=== PATIENT | female | born 1940 | race Caucasian/White ===

== ENCOUNTER 2023-06-21 12:14 | Emergency (ER) | payer MEDICARE, BC ==
[~2023-06-21] VITALS: Ht 167.6 cm; Wt 75.0 kg
[2023-06-21 12:49] VITALS: TEMP 98.7
[2023-06-21 13:22] LABS: BASOPHILS % (AUTO) 0.6 % (0-1); EOSINOPHILS % (AUTO) 0.2 % (0-6); HEMATOCRIT 34.8 % (35.0-45.0); HEMOGLOBIN 11.7 g/dl (12.0-16.0); LYMPHOCYTES # (AUTO) 1.9 X10'3 (1.1-4.8); LYMPHOCYTES % (AUTO) 37.2 % (21-51); MEAN CORPUSCULAR HEMOGLOBIN 29.1 PG (27.0-31.0); MEAN CORPUSCULAR HGB CONC 33.6 g/dL (33.0-36.5); MEAN CORPUSCULAR VOLUME 86.6 FL (78-98); MEAN PLATELET VOLUME 7.1 FL (7.4-10.4); MONOCYTES # (AUTO) 0.7 X10'3 (0-0.9); MONOCYTES % (AUTO) 14.2 % (2-12); NEUTROPHILS # (AUTO) 2.4 X10'3 (1.8-7.7); NEUTROPHILS % (AUTO) 47.8 % (42-75); PLATELET COUNT 192 X10'3 (140-440); RED BLOOD COUNT 4.02 X10'6 (4.20-5.60)
[2023-06-21 13:31] LABS: ALANINE AMINOTRANSFERASE 27 U/L (12-78); ALBUMIN 3.2 G/DL (3.4-5.0); ALKALINE PHOSPHATASE 48 IU/L (46-116); ANION GAP 10 (8-16); ASPARTATE AMINO TRANSFERASE 36 U/L (10-37); BILIRUBIN,TOTAL 0.3 MG/DL (0.1-1.0); BLOOD UREA NITROGEN 39 MG/DL (7-18); BUN/CREATININE RATIO 21.8 (10.0-20.0); CALCIUM 8.3 MG/DL (8.5-10.1); CHLORIDE 101 MMOL/L (99-107); CREATININE 1.79 MG/DL (0.40-0.90); GLUCOSE 114 MG/DL (70-104); POTASSIUM 4.7 MMOL/L (3.5-5.1); SODIUM 134 MMOL/L (135-145); TOTAL CARBON DIOXIDE 22.6 MMOL/L (24-32); TOTAL PROTEIN 6.4 G/DL (6.4-8.2); eCRCL 22 ML/MIN; eGFR 27 ML/MIN
[2023-06-21 13:39] LABS: PRO BRAIN NATRIURETIC PEPTIDE 39 PG/ML (0-450)
[2023-06-21] MEDS ORDERED: ondansetron 4mg rapidly disintigrating tab PO ONE ×2 (15:05→17:20)
[2023-06-21] MEDS ORDERED: LISI20TA28 PO (15:16)
[2023-06-21] MEDS ORDERED: LOVA40TA2 PO (15:16)
[2023-06-21] MEDS ORDERED: AMLO2.5T5 PO (15:17)
[2023-06-21] MEDS ORDERED: [UNRECOGNIZED DRUG - OTHER] PO (15:18)
[2023-06-21] MEDS ORDERED: CRAN400C PO (15:19)
[2023-06-21] MEDS ORDERED: UBID100C16 PO (15:20)
[2023-06-21] MEDS ORDERED: CHRO1000 PO (15:22)
[2023-06-21] MEDS ORDERED: [UNRECOGNIZED DRUG - OTHER] PO (15:23)
[2023-06-21] MEDS ORDERED: ASPI-611 PO (15:24)
[2023-06-21] MEDS ORDERED: CIDE600C PO (15:24)
[2023-06-21] MEDS ORDERED: [UNRECOGNIZED DRUG - OTHER] PO (15:25)
[2023-06-21] MEDS ORDERED: CHOL20004 PO (15:26)
[2023-06-21] MEDS ORDERED: PRIMROSE OIL PO (15:27)
[2023-06-21] MEDS ORDERED: normal saline 1000ml 1,000 ML IV ONE (16:00)
[2023-06-21] MEDS ORDERED: ALBU18HF2 INH (17:16)
[2023-06-21] MEDS ORDERED: BENZ-38 PO (17:16)
[2023-06-21] MEDS ORDERED: ONDA4TAB12 PO (17:16)
[2023-06-21 18:40] VITALS: BP 103/63; PULSE 78; RESP 16; O2SAT 96
== END 2023-06-21 18:00 | disposition home or self-care (01) ==
LOC: ER 12:15
DX: B34.9 Viral infection, unspecified (principal); Z20.822 Contact with and (suspected) exposure to COVID-19
CPT/HCPCS: 36415; 71045; 80053; 83605; 83880; 85025; 87040; 87502; 87503; 87811; 96360; 99284; J7030